=== PATIENT | female | born 1980 | race Caucasian/White ===

== ENCOUNTER 2016-11-17 16:26 | Outpatient (CLI) | payer OTHER ==
--- NOTE | 2016-11-18 11:19 | Diagnostic Imaging Report ---
CT scan abdomen and pelvis with intravenous contrast HISTORY: Pain, trauma Total DLP equals 520 CTDI equals 10.9 Axial sections were obtained from the xiphoid process down to the pubic symphysis. The liver exhibits a homogeneous parenchyma. No focal lesions. The spleen appears normal. No abnormality seen in the region of the pancreas. No focal renal lesions. The exam of the pelvis demonstrates preservation of normal fat planes. The uterus is situated in the right side of the pelvis. No abnormal masses or abnormal fluid collections. Stool-filled nondilated large bowel is noted. IMPRESSION: 1. Stool-filled nondilated large bowel 2. Radiolucent ringlike density in the region of the cervix but should be correlated with patient's medical/contraceptive history. 3. No other acute abnormalities
== END 2016-11-17 17:29 | disposition short-term general hospital (02) ==
LOC: RAD 16:26 → EEVIPCON 16:26 → RAD 17:29
PROVIDERS: ATTEND Emergency Medicine
DX: R10.33 Periumbilical pain (principal)
CPT/HCPCS: 74177; Q9967